=== PATIENT | male | born 1945 | race Caucasian/White ===

== ENCOUNTER 2017-02-19 14:42 | Emergency (ER) | payer MEDICARE ==
[~2017-02-19] VITALS: Ht 180.3 cm; Wt 100.0 kg
[2017-02-19] MEDS ORDERED: EC-NAPROSYN500 MG PO (15:55)
[2017-02-19] MEDS ORDERED: LORTAB 5-325 MG1 TAB PO (15:55)
[2017-02-19 16:42] VITALS: BP 100/57
== END 2017-02-19 16:49 | disposition home or self-care (01) ==
LOC: ED 14:42
DX: S76.111A Strain of right quadriceps muscle, fascia and tendon, initial encounter (principal); X58.XXXA Exposure to other specified factors, initial encounter